=== PATIENT | male | born 1995 | race African-American/Black ===

== ENCOUNTER 2021-12-23 23:20 | Emergency (ER) | payer OTHER, SELFPAY ==
--- NOTE | ~2021-12-23 | CT_ITS ---
EXAMINATION: CT brain wo con EXAM DATE: 12/23/2021 23:50 INDICATION: Fall, head injury. TECHNIQUE: Spiral CT of the head was performed without contrast. Axial, coronal and sagittal images were reviewed. The dose-length product (DLP) for this examination was 681.00 mGy-cm. The exposure w as tailored according to patient size, and iterative reconstruction (ASIR) was used as additional dos e reduction technique. There is no prior study for comparison. FINDINGS: There is no acute intraparenchymal hemorrhage. No evidence of intraparenchymal brain mass lesion. No evidence of acute infarction. There is no mass effect or midline shift. The ventricles are normal in size. There are no extra-axial collections. There are no acute calvarial fractures. T he orbits are unremarkable. Soft tissue is unremarkable. The visualized sinuses and mastoid air anthony ls are well aerated. IMPRESSION: 1. No acute intracranial findings. Reviewed, dictated and finalized at location B.
--- NOTE | ~2021-12-23 | CT_ITS ---
EXAMINATION: CT facial & cervical spine wo EXAM DATE: 12/23/2021 23:50 INDICATION: Head injury. TECHNIQUE: Spiral CT of the facial bones was acquired in the axial plane. Coronal reformatted images were also reviewed. Spiral CT of the cervical spine was performed without contrast. Axial images we re reviewed. Coronal and sagittal reformatted images were also reviewed. The dose-length product (DL P) for this examination was 587.88 mGy-cm. The exposure was tailored according to patient size, and iterative reconstruction (ASIR) was used as additional dose reduction technique. There is no prior s tudy for comparison. FINDINGS: FACIAL CT: There are no displaced acute nasal bone fractures. The mandible, sinuses and orbits are i ntact. The orbits, globes and extraocular muscles are unremarkable. Mild bilateral ethmoid mucope riosteal thickening. Mild bilateral maxillary sinus mucoperiosteal thickening. CERVICAL CT: There is no evidence of acute cervical fracture. The odontoid process is intact. Pre-d ens space is normal. Prevertebral soft tissue is normal. There are no soft tissue abnormalities halie ntified. There is no disc space widening or traumatic vertebral body subluxation suspected. Vertebr al body and disc heights are well-maintained. A detailed level by level evaluation of spondylosis c an be added as addendum if requested. IMPRESSION: 1. No acute facial or cervical fracture. 2. Mild ethmoid, maxillary sinus mucoperiosteal thickening. Reviewed, dictated and finalized at location B.
[2021-12-23 23:15] VITALS: BP 158/100; PULSE 80; RESP 17; TEMP 36.7; O2SAT 96
--- NOTE | 2021-12-23 23:24 | ED_ITS ---
HPI - Head Injury General Chief complaint: Head Injury Stated complaint: head injury from 4 to concrete floor History of Present Illness HPI Narrative: 26-year-old male presents the emergency room complaints of a head injury that occurred at work. 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 Patient states that he lost consciousness for an unknown period of time. Patient is presently alert and oriented x3, complaining of dizziness. Related Data Home Medications Medication Instructions Recorded Confirmed No Home Medications 12/23/21 12/23/21 Allergies Allergy/AdvReac Type Severity Reaction Status Date / Time No Known Allergies Allergy Unverified 12/23/21 23:23 Review of Systems Review of Systems: CONSTITUTIONAL: Denies fever, chills, or sweats. EYES: Denies visual changes, redness, or discharge. ENT: Denies rhinorrhea, congestion, sore throat, or otalgia. CARDIOVASCULAR: Denies chest pain, palpitations, or edema. RESPIRATORY: Denies cough or dyspnea. GASTROINTESTINAL: Denies abdominal pain, nausea, vomiting, or diarrhea. GENITOURINARY: Denies dysuria or hematuria. SKIN: Denies rash or itching. MUSCULOSKELETAL: Denies back pain, joint pain, or myalgia. NEUROLOGIC: Reports headache, dizziness PSYCHIATRIC: Denies anxiety or depression. Exam Narrative: GENERAL: Well-appearing, well-nourished, and in no acute distress. HEAD: Normocephalic, tenderness to the right side of scalp EYES: PERRLA and EOMI. ENT: Nares clear, no rhinorrhea or epistaxis. Mucous membranes moist. Bilateral TMs pearly mason nonbulging NECK: Supple. No adenopathy or masses. No carotid bruits or JVD CHEST: Clear to auscultation. No respiratory distress. No wheezes rales or rhonchi HEART: Regular rate and rhythm. No murmur heard. Normal peripheral pulses. ABDOMEN: Soft, nontender, nondistended, normal active bowel sounds. EXTREMITIES: Normal range of motion. No edema. SKIN: Warm, dry, no rash. NEURO: No focal deficits. Alert and oriented x3. PSYCH: Normal mood and affect. Course Vital Signs Vital signs: Vital Signs Temperature 36.7 C 12/23/21 23:15 Pulse Rate 80 12/23/21 23:15 Respiratory Rate 17 12/23/21 23:15 Blood Pressure 158/100 H 12/23/21 23:15 Pulse Oximetry 96 12/23/21 23:15 Temperature 36.7 C 12/23/21 23:15 Pulse Rate 80 12/23/21 23:15 Respiratory Rate 17 12/23/21 23:15 Blood Pressure 158/100 H 12/23/21 23:15 Pulse Oximetry 96 12/23/21 23:15 MDM - Head Injury Imaging Data Radiologist's impression: CT HEAD: No intracranial abnormalities CT C SPINE: No evidence of fracture or malalignment CT FACIAL Bones: No facial fractures Discharge Plan Discharge Clinical Impression: Closed head injury Patient Disposition: Home, Self-Care Condition: Stable Instructions: Antibiotic Form, Head Injury (ED) Prescriptions: No Action No Home Medications RF: 0 Follow-up/Referrals: Yayo Smith MD [Primary Care Provider] - Stand Alone Forms: Work/School Release IP Time of Disposition: 00:53
[2021-12-24 01:03] VITALS: BP 157/91; PULSE 68; RESP 17; O2SAT 100
== END 2021-12-24 01:05 | disposition home or self-care (01) ==
PROVIDERS: Emergency Provider Nurse Practitioner Family; PCP Family Medicine
DX: S09.90XA Unspecified injury of head, initial encounter (principal); W24.0XXA Contact with lifting devices, not elsewhere classified, initial encounter
CPT/HCPCS: 70450; 70486; 72125; 99284